=== PATIENT | female | born 2000 | race Caucasian/White ===

== ENCOUNTER 2022-12-08 19:09 | Emergency (ER) | payer BC ==
[~2022-12-08] VITALS: Ht 162.5 cm; Wt 111.6 kg
[2022-12-08] MEDS ORDERED: NAPROSYN500 MG PO (21:31)
[2022-12-08] MEDS ORDERED: ONDANSETRON4 MG SL (21:31)
== END 2022-12-08 21:45 | disposition home or self-care (01) ==
LOC: ED 19:09
DX: G93.5 Compression of brain (principal); R51.9 Headache, unspecified

== ENCOUNTER 2022-12-31 14:49 | Emergency (ER) | payer BC ==
[~2022-12-31] VITALS: Ht 162.5 cm; Wt 100.7 kg
[~2022-12-31 14:49] MED LIST: NAPROSYN500 MG PO; ONDANSETRON4 MG SL
[2022-12-31] MEDS ORDERED: AMOX-CLAV 875-1 EACH PO (16:18)
[2022-12-31] MEDS ORDERED: TRAMADOL HCL50 MG PO (16:29)
== END 2022-12-31 19:31 | disposition home or self-care (01) ==
LOC: ED 14:49
DX: K04.7 Periapical abscess without sinus (principal); H92.01 Otalgia, right ear